=== PATIENT | male | born 1955 | race Two or more races ===

== ENCOUNTER 2024-09-19 08:49 | Outpatient (CLI) | payer MEDICARE, MEDICAID ==
[~2024-09-19] VITALS: Ht 175.3 cm; Wt 77.1 kg
[2024-09-19] MEDS: REGADENOSON 0.4 MG/5 ML SYRG IV ONE ×2 (09:20→10:41)
--- NOTE | 2024-09-23 10:04 | DVHSR ---
APPROVED REPORT Exam: Nuclear Stress Test Indication: CAD BMI: 0 Medical History Medical History: CAD, ICD, HTN Allergies: No known drug allergies Stress Test Details Stress Test: Pharmacologic stress testing performed using 0.4 mg of regadenoson per 5 mL given IV ov er 10 seconds. HR Resting HR: 77 bpmMax Heart Rate (APMHR): 153.184570 bpm Max HR Achieved: 115 bpmTarget HR (85% APMHR): 130.823526 bpm % of APMHR: 75.16 Recovery HR: 90 bpm BP Resting BP: 153/96 mmHg Recovery BP: 138/77 mmHg ECG Resting ECG: BBB NSR Clinical Reason for Termination: Completed protocol Nurse Comments Recieved pt. from [facility]. A/Ox4 on RA. Connected to gas manager, VS stable. PIV flushes well. Reviewed POC. Pt. verbalized understanding of procedure including risks and side ef fects, agrees for stress testing. Lexiscan stress test performed per protocol. [facility] tech administered Cardiolite. Pt. tolerated well . Pt. stable, no change on exam. VS returned to baseline. Transferred to [facility] via wheelchair w/ te ch. Stress ECG Conclusion severe dilated LV severe chf with ef 22% infarcted apex and inferior wall ecg shows SR, dysrhythmia and PVCs NM EXAM: Myocardial Perfusion REST/STRESS Imaging Protocol: Rest Tc-99m/Stress Tc-99m 1 day Resting Data Rest SPECT myocardial perfusion imaging was performed in supine position 60 minutes following the int ravenous injection of 14.4 mCi of Tc-99m Sestamibi. Time of rest injection: 09:20 Date: 09/19/2024 Time of rest imagin:20 Date: 09/19/2024 Administration Route: IV Administration Site: Left Hand Pharmacologic Stress Pharmacologic stress test was performed by injecting Regadenoson 0.4 mg IV push followed by the intra venous injection of 31.6 mCi of Tc-99m Sestamibi. Time of stress injection: 10:30 Date: 09/19/2024 Time of stress imagin:30 Date: 09/19/2024 Administration Route: IV Administration Site: Left Hand Gated Stress SPECT was performed 60 minutes after stress injection. The images were gated to evaluate regional wall motion and calculate left ventricular ejection fracti on. Stress only was performed in the Supine position. Nuclear Conclusion Nuclear Findings: negative for ischemia severe dilated LV severe chf with ef 22% infarcted apex and inferior wall ecg shows SR, dysrhythmia and PVCs
== END 2024-09-19 17:00 | disposition home or self-care (01) ==
LOC: XYW 08:49
PROVIDERS: ATTEND Internal Medicine
DX: I49.3 Ventricular premature depolarization (principal); I49.9 Cardiac arrhythmia, unspecified; I25.10 Atherosclerotic heart disease of native coronary artery without angina pectoris; I25.810 Atherosclerosis of coronary artery bypass graft(s) without angina pectoris; R06.02 Shortness of breath; I10 Essential (primary) hypertension
CPT/HCPCS: 78452; 93017; A9500; J2785

== ENCOUNTER → 2024-09-19 | Outpatient (CLI) | payer MEDICARE, MEDICAID ==
[2024-09-19 08:50] LABS: Basophils # (auto) 0.1 10 ^3/uL (0-0.2); Basophils % (auto) 1.5 % (0.0-2.0); Eosinophils # (auto) 0.2 10 ^3/uL (0-0.8); Eosinophils % (auto) 2.8 % (0.0-7.0); Hematocrit 41.2 % (41.0-53.0); Lymphocytes # (auto) 2.1 10 ^3/uL (0.4-5.4); Lymphocytes % (auto) 33.3 % (10.0-50.0); Mean Corpuscular Hemoglobin 33.8 pg (28.0-32.0); Mean Corpuscular Volume 99.4 fL (80.0-100.0); Monocytes # (auto) 0.6 10 ^3/uL (0-1.3); Monocytes % (auto) 9.3 % (0.0-12.0); Neutrophils # (auto) 3.3 10 ^3/uL (1.6-8.6); Neutrophils % (auto) 53.1 % (37.0-80.0); Platelet Count (auto) 213 10^3/uL (140-450); Red Blood Cells 4.15 10^6/uL (4.5-5.90); Red Cell Distribution Width 15.3 % (11.8-14.3); White Blood Cell 6.2 10^3/uL (4.4-10.8)
[2024-09-19 09:27] LABS: Alanine Aminotransferase 24 U/L (7-40); Albumin 4.6 g/dL (3.2-4.8); Alkaline Phosphatase 93 U/L (46-116); Anion Gap 7 (5-15); Aspartate Aminotransferase 28 U/L (13-40); BUN/Creatinine Ratio 12.8 (10.0-20.0); Blood Urea Nitrogen 14 mg/dL (9-23); Calcium 10.1 mg/dL (8.7-10.4); Carbon Dioxide 28 mmol/L (20-31); Glucose 100 mg/dL (74-106); Potassium 4.1 mmol/L (3.5-5.1); Sodium 142 mmol/L (136-145); Total Protein 6.9 g/dL (5.7-8.2); Triglycerides 109 mg/dL (< 150)
[2024-09-19 09:28] LABS: Bilirubin, Total 0.7 mg/dL (0.2-1.0)
[2024-09-19 09:37] LABS: Chloride 107 mmol/L (98-107)
[2024-09-19 09:38] LABS: Cholesterol 228 mg/dL (< 200); HDL Cholesterol 64 mg/dL (40-59); LDL Cholesterol 160 mg/dL (< 100)
[2024-09-19 10:27] LABS: Free T3 3.31 pg/mL (2.3-4.2)
[2024-09-19 10:28] LABS: Free T4 (Free Thyroxine) 1.23 ng/dL (0.89-1.76)
== END | disposition home or self-care (01) ==
LOC: LAB 08:23
PROVIDERS: ATTEND Internal Medicine
DX: I11.0 Hypertensive heart disease with heart failure (principal); I50.9 Heart failure, unspecified; E11.9 Type 2 diabetes mellitus without complications
CPT/HCPCS: 36415; 80053; 80061; 83036; 84439; 84481; 85025